=== PATIENT | male | born 1950 | race Caucasian/White ===

== ENCOUNTER 2018-05-24 03:29 | Emergency (ER) | payer OTHER ==
[~2018-05-24] VITALS: Ht 170.2 cm; Wt 81.7 kg
--- NOTE | ~2018-05-24 | EKG ---
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: [facility] : 1950 Requested By: Benjamin Avendano Order Number: [id number] MD: Zachery Reynoso Measurements Intervals Rea Rate: 53 P: 52 AK: 128 QRS: -37 QRSD: 98 T: 30 QT: 461 QTc: 433 Interpretive Statements Sinus bradycardia Left axis deviation Abnormal R-wave progression, early transition No previous ECG available for comparison Electronically Signed On 05-24-2018 8:40:30 CDT by Zachery Reynoso [email or web address] <ELECTRONICALLY SIGNED> By: Zachery Reynoso MD, [facility] 05/24/18 0840 0340 0340 Zachery Reynoso MD, FACC /EPI
[2018-05-24 04:10] LABS: CALCIUM 10.2 mg/dL (8.5-10.1); CREATININE 1.1 mg/dL (0.7-1.3); POTASSIUM 3.9 mmol/L (3.5-5.1)
[2018-05-24 04:14] LABS: ABSOLUTE NEUTROPHILS 6.6 thou/uL (1.4-8.2); EOSINOPHILS 3.6 % (0.0-3.0); HEMATOCRIT 39.4 % (42.0-52.0); HEMOGLOBIN 13.4 gm/dL (14.0-18.0); LYMPHOCYTES 17.7 % (24.0-44.0); MCHC 33.9 g/dL (28.0-37.0); MCV 88.6 fL (80.0-100.0); MONOCYTES 7.9 % (1.0-8.0); PLATELET COUNT 349 thou/uL (150-400); POLYS 69.8 % (36.0-66.0); RBC 4.45 mil/uL (4.50-6.00); WBC 9.5 thou/uL (4.0-11.0)
[2018-05-24] MEDS ORDERED: SYNTHROID25 MC1 PO (04:59)
[2018-05-24] MEDS ORDERED: TYLENOL325 MG PO (05:00)
[2018-05-24] MEDS ORDERED: PERCOCET 5-3251 EACH PO (07:37)
[2018-05-24 07:51] VITALS: BP 126/68
== END 2018-05-24 07:52 | disposition home or self-care (01) ==
LOC: ER 03:29
PROVIDERS: Emergency Medicine
DX: C34.90 Malignant neoplasm of unspecified part of unspecified bronchus or lung (principal); M54.9 Dorsalgia, unspecified; E03.9 Hypothyroidism, unspecified; F17.210 Nicotine dependence, cigarettes, uncomplicated; Z88.0 Allergy status to penicillin